=== PATIENT | male | born 1990 | race Two or more races ===

== ENCOUNTER 2016-09-23 08:36 | Day surgery (SDC) | payer BC ==
[~2016-09-23 08:36] MED LIST: CALCIUM ACETAT667 M2 PO; CALCIUM ACETAT667 M3 PO; COREG6.25 M1 PO; DIPHENHYDRAMINE50 M2 PO; MUPIROCIN15 G2 TP; NORVASC10 M2 PO; OMEPRAZOLE20 M3 PO; RENAL CAPS SOFTG1 M1 PO; SENSIPAR60 M1 PO; TYLENOL325 M2 PO; VIBRAMYCIN100 M1 PO; VITAMIN D250000 UNI1 PO; ZOLOFT50 M1 PO; [UNRECOGNIZED DRUG - OTHER] PO
[2016-09-23 10:36] LABS: BASO % 0.6 % (0-2); EOS % 3.9 % (0-7); EOSINOPHIL ABSOLUTE COUNT 0.1 tho/cmm (0.0-0.7); HCT-HEMATOCRIT 42.2 % (36.0-53.5); HGB-HEMOGLOBIN 14.5 gm/dl (13.5-17.0); IMMATURE GRANULOCYTES ABSOLUTE 0.01 tho/cmm (0-0.03); IMMATURE GRANULOCYTES PERCENT 0.3 % (0-0.3); LYMPH % 47.8 % (20-45); LYMPH ABSOLUTE COUNT 1.7 tho/cmm (0.8-4.5); MCH (MEAN CORPUSCULAR HGB) 30.9 pg (28.0-32.0); MCHC MEAN CORPUSCULAR HGB CONC 34.4 % (32.0-36.0); MCV (MEAN CELL VOLUME) 89.8 fl (82.0-96.0); MEAN PLATELET VOLUME 9.9 cmc (9.4-12.4); MONO % 12.7 % (0-12); MONOCYTE ABSOLUTE COUNT 0.5 tho/cmm (0.0-1.2); NEUTROPHIL ABSOLUTE COUNT 1.3 tho/cmm (1.6-8.0); NEUTROPHIL-AUTOMATED 1.3 tho/cmm (1.6-8.0); NEUTROPHILS % 34.7 % (40-80); PLATELET COUNT 203 tho/cmm (150-450); RED CELL DISTRIBUTION WIDTH 12.3 % (12.4-16.4); WHITE BLOOD COUNT 3.6 tho/cmm (4.0-10.0)
[2016-09-23 10:44] LABS: ANION GAP 16 mmol/L (0-20); BLOOD UREA NITROGEN 51 mg/dl (6-24); CALCIUM 9.1 mg/dl (8.5-10.5); CARBON DIOXIDE-VENOUS 31 mmol/L (22-32); CHLORIDE 94 mmol/l (96-110); GLUCOSE 91 mg/dL (70-110); POTASSIUM 5.1 mmol/L (3.7-5.1); SODIUM 136 mmol/L (135-145); eGFR VALUE FOR BLACK 6 mL/Min
== END 2016-09-23 13:49 ==
LOC: RADSP 08:36
PROVIDERS: Anesthesiology
PROC: B51WYZZ Fluoroscopy of Dialysis Shunt/Fistula using Other Contrast (ICD-10-PCS; principal; 2016-09-23)
PROC: 057Y3ZZ Dilation of Upper Vein, Percutaneous Approach (ICD-10-PCS; 2016-09-23)
DX: T82.858A Stenosis of other vascular prosthetic devices, implants and grafts, initial encounter (principal); I12.0 Hypertensive chronic kidney disease with stage 5 chronic kidney disease or end stage renal disease; N18.6 End stage renal disease; F41.9 Anxiety disorder, unspecified; F32.9 Major depressive disorder, single episode, unspecified; F17.290 Nicotine dependence, other tobacco product, uncomplicated; Z79.899 Other long term (current) drug therapy; Z88.1 Allergy status to other antibiotic agents; Z98.890 Other specified postprocedural states; Z99.2 Dependence on renal dialysis
CPT/HCPCS: C1725; C1769; C1887; J7030; Q9967